=== PATIENT | female | born 1995 | race Two or more races ===

== ENCOUNTER 2019-04-14 04:41 | Emergency (ER) | payer MEDICAID ==
[~2019-04-14] VITALS: Ht 162.6 cm; Wt 54.5 kg
[2019-04-14 04:44] VITALS: BP 119/64
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
[2019-04-14] MEDS ORDERED: KETOROLAC 30 MG/1 ML ONE (05:14)
[2019-04-14] MEDS: KETOROLAC 30 MG/1 ML IM ONE ×2 (05:18→05:30)
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
--- NOTE | 2019-04-14 06:54 | NUR ---
GIVEN DC INSTRUCTION PT UNDERSTOOD
== END 2019-04-14 06:56 | disposition home or self-care (01) ==
LOC: ED 06:37
DX: S40.011A Contusion of right shoulder, initial encounter (principal); S50.01XA Contusion of right elbow, initial encounter; J45.909 Unspecified asthma, uncomplicated; V47.6XXA Car passenger injured in collision with fixed or stationary object in traffic accident, initial encounter; Y93.89 Activity, other specified; Y92.89 Other specified places as the place of occurrence of the external cause; Y99.8 Other external cause status
CPT/HCPCS: 99283; J1885